=== PATIENT | female | born 1995 | race Caucasian/White ===

== ENCOUNTER 2020-07-14 10:26 | Inpatient (IN) | payer OTHER ==
[2020-07-14] MEDS ORDERED: RINGERS SOLUTION,LACTATED 1,000 ML IV PRN (10:45)
[2020-07-14] MEDS ORDERED: RINGERS SOLUTION,LACTATED 1,000 ML IV ONE (10:45)
[2020-07-14] MEDS ORDERED: MISOPROSTOL 0.2 MG TABLET ONE (11:07)
[2020-07-14] MEDS ORDERED: OXYTOCIN 10 UNIT/ML VIAL ONE (11:07)
[2020-07-14] MEDS ORDERED: OXYTOCIN/0.9 % SODIUM CHLORIDE 30 UNIT/500 ML RTUINJ ONE (11:08)
[2020-07-14] MEDS ORDERED: LIDOCAINE 1% INJ-PF (10 MG/ML) 30 ML SDV ONE (11:08)
[2020-07-14 11:17] LABS: APPEARANCE,URINE CLOUDY; BILIRUBIN,URINE NEGATIVE (NEGATIVE); COLOR,URINE YELLOW; GLUCOSE, URINE NEGATIVE (NEGATIVE); KETONES,URINE 20 mg/dL (NEGATIVE); LEUKOCYTE ESTERASE,URINE LARGE (NEGATIVE); NITRITE,URINE NEGATIVE (NEGATIVE); PROTEIN,URINE 30 mg/dL (NEGATIVE); URINE SPECIFIC GRAVITY 1.004; UROBILINOGEN,URINE NEGATIVE mg/dL (<2.0)
[2020-07-14 11:26] LABS: ABSOLUTE BASOPHILS # (AUTO) 0.1 10^3/uL (0.0-0.2); ABSOLUTE LYMPHOCYTES (AUTO) 2.7 10^3/uL (0.5-4.7); ABSOLUTE MONOCYTES (AUTO) 0.8 10^3/uL (0.1-1.4); ABSOLUTE NEUT (AUTO) 14.4 10^3/uL (1.7-8.2); BASOPHILS % (AUTO) 0.5 % (0-2); EOSINOPHILS % (AUTO) 0.3 % (0-6); HEMOGLOBIN 13.8 g/dL (12.0-15.5); MEAN CORPUSCULAR HEMOGLOBIN 30.1 pg (27.0-33.4); MEAN CORPUSCULAR HGB CONC 36.2 g/dL (32.0-36.0); MEAN CORPUSCULAR VOLUME 83 fl (80-97); MONOCYTES % (AUTO) 4.2 % (3-13); PLATELET COUNT 225 10^3/uL (150-450); RED BLOOD COUNT 4.58 10^6/uL (3.72-5.28); RED CELL DISTRIBUTION WIDTH 13.4 % (11.5-14.0); TOTAL CELLS COUNTED % (AUTO) 100 %
[2020-07-14 11:35] LABS: URINE AMPHETAMINES SCREEN NEGATIVE; URINE BARBITURATES SCREEN NEGATIVE; URINE BENZODIAZEPINES SCREEN NEGATIVE; URINE COCAINE SCREEN NEGATIVE; URINE MARIJUANA (THC) SCREEN NEGATIVE; URINE METHADONE SCREEN NEGATIVE; URINE PHENCYCLIDINE SCREEN NEGATIVE
--- NOTE | 2020-07-14 14:46 | Admission Physical ---
Datetime Report Generated by CPN: 07/14/2020 14:45 CURRENT ADMISSION Chief Complaint: Uterine Contractions Indication for Induction: Not Applicable Admit Impression : Term, Intrauterine Admit Plan: Admit to Unit; Initiate Labor Protocol ALLERGIES Medication Allergies: Yes Medication Allergies: oxycodone (07/14/2020) Latex: No Latex Allergies Food Allergies: n/a Environmental Allergies: seasonal OBSTETRICAL HISTORY EDC: 07/19/2020 00:00 : 2 Para: 1 Term: 1 : 0 SAB: 0 IAB: 0 Ectopic: 0 Livin Cesareans: 0 VBACs: 0 Multiple Births: 0 Gestational Diabetes: No Rh Sensitization: No Incompetent Cervix: No DREW: No Infertility: No ART Treatment: No Uterine Anomaly: No IUGR: No Hx Previous C/S: No Macrosomia: No Hx Loss/Stillborn: No PIH: No Hx : No Placenta Previa/Abruption: No Depression/PP Depression: Yes PTL/PROM: No Post Hemorrhage: No Current Procedures: Ultrasound Obstetrical History Comments: G1- G2- current SEE RECORDS Alcohol: No Marijuana : No Cocaine: No Other Illicit Drugs: No Cigarettes: Former Smoker. 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 Surgery: No Heart Disease: No Hosp/Surgery: Yes Autoimmune Disorder: No Anesthetic Complications: No Kidney Disease: No Abnormal Pap Smear: No Neuro/Epilepsy: No Psychiatric Disorders: Yes Other Medical Diseases: No Hepatitis/Liver Disease: No Significant Family History: No Varicosities/Phlebitis: No Trauma/Violence : No Thyroid Dysfunction: No Medical History Comments: migraines, scoliosis, T_A, nasal surgery, left foot surgery, anxiety, bunionectomy (Annotations: Data stored by [facility] on behalf of user) INFECTIOUS HISTORY Gonorrhea: No Genital Herpes: No Chlamydia: No Tuberculosis: No Syphilis: No Hepatitis: No HIV/AIDS Exposure: No Rash or Viral Illness: No HPV: No PHYSICAL EXAM General: Normal HEENT: Normal Neurologic: Normal Thyroid: Normal Heart: Normal Lungs: Normal Breast: Deferred Back: Normal Abdomen: Normal Genitourinary Exam: Normal Extremities: Normal DTRs: Normal Pelvic Type: Adequate FETUS A EGA: 39.2 PLANS FOR LABOR AND DELIVERY Labor and Delivery: None Pain Management: Natural Feeding Preference: Breast Benefit of Breast Feed Discussed: Yes Circumcision: N/A INFORMED CONSENT Signature: with User ID: [email or web address]
[2020-07-14] MEDS ORDERED: DIPH/PERTUSS(ACELL)/TETANUS VAC/PF 0.5 ML SYR (>=10YO) IM PRN (15:25)
[2020-07-14] MEDS ORDERED: OXYTOCIN/0.9 % SODIUM CHLORIDE 30 UNIT/500 ML RTUINJ IV PRN (15:25)
[2020-07-14] MEDS ORDERED: DIBUCAINE 1% OINTMENT 28 GM TP PRN (15:25)
[2020-07-14] MEDS ORDERED: PROMETHAZINE HCL 25 MG SUPP.RECT PR PRN (15:25)
[2020-07-14] MEDS ORDERED: BENZOCAINE/MENTHOL AEROSOL SPRAY 56 ML TOP PRN (15:25)
[2020-07-14] MEDS ORDERED: MEASLES,MUMPS&RUBELLA VACC/PF 0.5 ML VIAL SUBCUT PRN (15:25)
[2020-07-14] MEDS ORDERED: ACETAMINOPHEN 650 MG SUPP.RECT PR PRN (15:25)
[2020-07-14] MEDS ORDERED: MAGNESIUM HYDROXIDE SUSP 30 ML UDCUP PO PRN (15:25)
[2020-07-14] MEDS ORDERED: PROMETHAZINE HCL 25 MG TABLET PO PRN (15:25)
[2020-07-14] MEDS ORDERED: GLYCERIN/WITCH HAZEL LEAF 1 EACH MED..WIPE TP PRN (15:25)
[2020-07-14] MEDS ORDERED: ZOLPIDEM TARTRATE 5 MG TABLET PO PRN (15:25)
[2020-07-14] MEDS ORDERED: PSEUDOEPHEDRINE HCL 30 MG TABLET PO PRN (15:25)
[2020-07-14] MEDS ORDERED: ACETAMINOPHEN WITH CODEINE #3 TABLET PO PRN (15:25)
[2020-07-14] MEDS ORDERED: PROMETHAZINE HCL INJ 25 MG/1 ML VIAL IV PRN (15:25)
[2020-07-14] MEDS ORDERED: DIPHENHYDRAMINE HCL 25 MG CAPSULE PO PRN (15:25)
[2020-07-14] MEDS ORDERED: NA PHOS,M-B/NA PHOS,DI-BA (ADULT) 133 ML ENEMA PR PRN (15:25)
[2020-07-14] MEDS ORDERED: BENZOCAINE/MENTHOL AEROSOL SPRAY 56 ML ONE (15:40)
[2020-07-14] MEDS ORDERED: IBUPROFEN 800 MG TABLET ONE (15:40)
--- NOTE | 2020-07-14 18:27 | Birth Certificate Data ---
Cert Data Datetime Report Generated by CPN: 07/14/2020 18:27 CERTIFICATE DATA Delivery Provider: Chay Lobato MD (07/14/2020 10:30:Yue Dawkins RN) 47a. Care: Yes (07/14/2020 10:30:Yue Dawkins RN) 47b. Date of First Visit: 12/23/2019 00:00 (07/14/2020 10:30:Destiny King RN) 47c. Date of Last Visit: 07/13/2020 00:00 (07/14/2020 10:30:Destiny King RN) 47d. Number of Visits: 9 (07/14/2020 10:30:Destiny King RN) 48a. Number of Prev Live Births: 1 (07/14/2020 10:30:Destiny King RN) 48b. Now Livin (07/14/2020 10:30:Destiny King RN) 48c. Live Births Now : 0 (07/14/2020 10:30:QS system process) 48d. Date of Last Live : 04/27/2016 00:00 (07/14/2020 10:30:Destiny King RN) 48e. Losses: 0 (07/14/2020 10:30:Destiny King RN) RISK FACTORS IN THIS 49a. Diabetes: No (07/14/2020 10:30:Yue Dawkins RN) 49b. Hypertension: No (07/14/2020 10:30:Yue Dawkins RN) 49c. Previous Births: 0 (07/14/2020 10:30:Yue Dawkins RN) 49d. Stillborns: No (07/14/2020 10:30:Yue Dawkins RN) 49d. IUGR: No (07/14/2020 10:30:Yue Dawkins RN) 49e. Infertility Treatment: No (07/14/2020 10:30:Yue Dawkins RN) 49f. Previous Cesareans: 0 (07/14/2020 10:30:Destiny King RN) Mother's Height 50b. Height Inches: 65 (07/14/2020 11:01:QS system process) Mother's Weight 51a. Pre- Weight (lbs): 176 (07/14/2020 10:30:Destiny King RN) 51b. Weight at Delivery (lbs): 189 (07/14/2020 18:25:QS system process) 52. Dt Last Normal Menses Began: 10/12/2019 00:00 (07/14/2020 10:30:Destiny King RN) Infections Present/Treated 53a. Gonorrhea: No (07/14/2020 10:30:Yue Dawkins RN) Results this Hospital Visit : Negative (07/14/2020 10:30:Destiny King RN) 53b. Syphilis: No (07/14/2020 10:30:Yue Dawkins RN) 53c. Chlamydia: No (07/14/2020 10:30:Yue Dawkins RN) Results this Hospital Visit: Negative (07/14/2020 10:30:Destiny King RN) 53d. Hepatitis B: No (07/14/2020 10:30:Yue Dawkins RN) Results this Hospital Visit: Negative (07/14/2020 10:30:Destiny King RN) 53e. Hepatitis C: Negative (07/14/2020 10:30:Destiny King RN) 53h. Mother Tested for HBsAG: Yes (07/14/2020 10:30:Destiny King RN) 53i. Date Tested: 12/16/2019 00:00 (07/14/2020 10:30:Destiny King RN) 53j. Test Result: Negative (07/14/2020 10:30:Destiny King RN) Obstetric Procedures 54a, b, c. Obstetric Procedures: Ultrasound (07/14/2020 10:30:Yue Dawkins RN) Cigarette Smoking Cigarette Smoking: Former Smoker. [id number] (07/14/2020 10:30:Destiny King RN) Onset of Labor 56a. PROM >12 Hrs: 0.12 (07/14/2020 10:30:QS system process) 56b. Precipitous Labor <3 Hrs: 4 (07/14/2020 10:30:QS system process) 56c. Prolonged Labor > 20 Hrs: 4 (07/14/2020 10:30:QS system process) 57a. Induction of Labor: N/A (07/14/2020 10:30:Luis Lyle RN) 57c. Non-Vertex Presentation A: Vertex (07/14/2020 10:30:Destiny King RN) 57d. Steroids - Lung Mat: None (07/14/2020 10:30:Yue Dawkins RN) 57d. Steroids - Lung Mat: Not Applicable (07/14/2020 10:30:Yue Dawkins RN) 57g. Moderate/Heavy Meconium: Clear (07/14/2020 15:13:Yue Dawkins RN) 57h. Intolerance of Labor: N/A (07/14/2020 10:30:Luis Lyle RN) : N/A (07/14/2020 10:30:Luis Lyle RN) 57i. Epidural/Spinal Anesthesia: None (07/14/2020 10:30:Luis Lyle RN) Method of Delivery 58a. Forceps - Unsuccessful A: N/A (07/14/2020 10:30:Luis Lyle RN) 58b. Vacuum - Unsuccessful A: N/A (07/14/2020 10:30:Luis Lyle RN) 58c. Presentation at 58c. Presentation at - A : Vertex (07/14/2020 10:30:Destiny King RN) 58c. Presentation at - A : N/A (07/14/2020 10:30:Yue Dawkins RN) 58c. Presentation at - A : Cephalic (07/14/2020 10:30:Destiny King RN) Final Route and Method of Del 58d. Baby A Route/Delivery: Vaginal (07/14/2020 15:20:Luis Lyle RN) 58e. Trial of Labor Attempted: No (07/14/2020 10:30:Yue Dawkins RN) 58e. Trial of Labor Attempted A: N/A (07/14/2020 10:30:Yue Dawkins RN) 58e. Trial of Labor Attempted B: N/A (07/14/2020 10:30:Yue Dawkins RN) Maternal Morbidity 59b. 3rd or 4th Degree Lacs: None (07/14/2020 10:30:Luis Lyle RN) 59b. 3rd or 4th Degree Lacs: N/A (07/14/2020 10:30:Yue Dawkins RN) Birthweight Baby A: 3170 (07/14/2020 10:30:Destiny King RN) 60a. Pounds : 7 (07/14/2020 10:30:QS system process) 60b. Ounces: 0 (07/14/2020 10:30:QS system process) 61. GA at Delivery Baby A: 39.2 (07/14/2020 10:30:Yue Dawkins RN) : Full Term- 39- 40.6 Weeks (07/14/2020 10:30:QS system process) 62a. 5 Minute Baby A: 9 (07/14/2020 10:30:QS system process)
--- NOTE | 2020-07-14 18:27 | Delivery Summary ---
Del Sum A-C Datetime Report Generated by CPN: 07/14/2020 18:27 DELIVERY PERSONNEL DELIVERY PERSONNEL: [id number] Delivery Doctor:: Chay Lobato MD Labor and Delivery Nurse:: Yue Dawkins RNcake wringer Nurse:: Luis Lyle RN Nursery Nurse:: Destiny King RN Hedis Nurse/METER SUPERVISOR: Katie Stovall, SENIOR ENVIRONMENTAL SCIENTIST MATERNAL INFORMATION Delivery Anesthesia: None Medications After Delivery: Pitocin 30 Units in 500ml NS/D5W Delivery QBL: 150 Maternal Complications: None LABOR SUMMARY EDC: 07/19/2020 00:00 No. Babies in Womb: 1 Attempted: No Labor Anesthesia: None LABOR INFORMATION Reason for Induction: Not Applicable Onset of Labor: 07/14/2020 10:40 Complete Dilatation: 07/14/2020 15:13 Oxytocin: N/A Group B Beta Strep: Negative Antibiotics # of Doses: 0 Name of Antibiotic Given: N/A Steroids Given: None Reason Steroids Not Administered: Not Applicable MEMBRANES Membranes Rupture Method: Spontaneous Rupture of Membranes: 07/14/2020 15:13 Length of Rupture (hr): 0.12 Amniotic Fluid Color: Clear Amniotic Fluid Amount: Large Amniotic Fluid Odor: Normal STAGES OF LABOR Stage 1 hr: 4 Stage 1 min: 33 Stage 2 hr: 0 Stage 2 min: 7 Stage 3 hr: 0 Stage 3 min: 4 Total Time in Labor hr: 4 Total Time in Labor min: 44 VAGINAL DELIVERY Episiotomy: None Laceration #1: None Laceration Extension #1: N/A Laceration Repair: Not Applicable Sponge Count Correct: N/A Sharps Count Correct: N/A CSECTION DELIVERY Primary Indication: N/A Secondary Indication: N/A CSection Incidence: N/A Labor: N/A Elective: N/A CSection Incision: N/A BABY A INFORMATION Delivery Date/Time: 07/14/2020 15:20 Method of Delivery: Vaginal Nurse Controlled Delivery: No Born in Route : No : N/A Forceps: N/A Vacuum Extraction: N/A Shoulder Dystocia : No PRESENTATION/POSITION BABY A Presentation: Cephalic Cephalic Presentation: Vertex Vertex Position: Left Occipital Anterior Breech Presentation: N/A PLACENTA INFORMATION BABY A Placenta Delivery Time : 07/14/2020 15:24 Placenta Method of Delivery: Spontaneous Placenta Status: Delivered SCORES BABY A Heart Rate 1 min: >100 bpm Resp Effort 1 min: Good Cry Reflex Irritability 1 min: Cough or Sneeze or Pulls Away Muscle Tone 1 min: Active Motion Color 1 min: Body [place], Extremities Blue Resuscitation Effort 1 min: Tactile Stimulation SCORE 1 MIN: 9 Heart Rate 5 min: >100 bpm Resp Effort 5 min: Good Cry Reflex Irritability 5 min: Cough or Sneeze or Pulls Away Muscle Tone 5 min: Active Motion Color 5 min: Body [place], Extremities Blue Resuscitation Effort 5 min: Tactile Stimulation SCORE 5 MIN: 9 INFORMATION BABY A Gestational Age at Delivery: 39.2 Gestational Status: Full Term- 39- 40.6 Weeks Outcome : Liveborn Infant Condition : Stable Infant Sex: Female IDENTIFICATION BABY A Verification Date/Time: 07/14/2020 15:29 ID Band Number: [id number] Mother's Name Verified: Yes RN Verifying Infant: Chaya King RN ; A. Garibaldi, RN WEIGHT/LENGTH BABY A Infant Birthweight (gm): 3170 Weight (lb): 7 Weight (oz): 0 Length (in): 19.75 Infant Length (cm): 50.17 CORD INFORMATION BABY A No. Cord Vessels: 3 Nuchal Cord : Around Neck x1, Loose Cord Blood Taken: Yes-For Storage (Mom's Blood type +) Suction: None ASSESSMENT BABY A Infant Complications: None; Other Infant Complications- Other: terminal mec Physical Findings at Delivery: Within Normal Limits Skin to Skin: Yes Yarn Texture Machine Operator/ALS Called : No Infant Care By: Chaya King RN Transferred To: Remains with Mother BABY B INFORMATION : N/A SIGNATURES Signature: with User ID: [email or web address]
[2020-07-14] MEDS: DOCUSATE SODIUM 100 MG CAPSULE PO SCH (19:30)
[2020-07-14] MEDS: FERROUS SULFATE 325 MG TABLET PO SCH (19:30)
[2020-07-14] MEDS: IBUPROFEN 800 MG TABLET PO SCH (22:14)
[2020-07-14] MEDS: FAMOTIDINE 20 MG TABLET PO SCH (22:14)
[2020-07-15] MEDS: IBUPROFEN 800 MG TABLET PO SCH ×2 (05:12→13:50)
[2020-07-15 07:12] LABS: HEMATOCRIT 31.5 % (36.0-47.0); MEAN CORPUSCULAR HEMOGLOBIN 30.3 pg (27.0-33.4); MEAN CORPUSCULAR HGB CONC 36.5 g/dL (32.0-36.0); MEAN CORPUSCULAR VOLUME 83 fl (80-97); PLATELET COUNT 183 10^3/uL (150-450); RED CELL DISTRIBUTION WIDTH 13.7 % (11.5-14.0)
[2020-07-15 07:14] LABS: HEMOGLOBIN 11.5 g/dL (12.0-15.5)
[2020-07-15 07:37] VITALS: BP 116/67
[2020-07-15] MEDS: DOCUSATE SODIUM 100 MG CAPSULE PO SCH (09:46)
[2020-07-15] MEDS: FAMOTIDINE 20 MG TABLET PO SCH (09:46)
[2020-07-15] MEDS: FERROUS SULFATE 325 MG TABLET PO SCH (09:46)
[2020-07-15] MEDS ORDERED: SENNOSIDES/DOCUSATE 8.6-50 MG 1 EACH TABLET PO SCH (10:00)
[2020-07-15] MEDS ORDERED: PRENATAL VITAMIN W DHA CAPSULE PO SCH (10:00)
--- NOTE | 2020-07-15 12:27 | PDOC PROGRESS REPORT ---
Subjective-OB Progress Note for:: 07/15/20 Subjective: Pt doing well, no concerns. She reports light bleeding, reg diet and voiding w/o difficulty. She would like to go home today, will discharge her if baby is discharged today. Physical Exam (OB) Vital Signs: Temp Pulse Resp BP Pulse Ox 98.0 F 79 18 116/67 99 07/15/20 08:38 07/15/20 07:12 07/15/20 07:12 07/15/20 07:12 07/15/20 07:12 Intake & Output 07/14/20 07/15/20 07/16/20 06:59 06:59 06:59 Intake Total 200 Balance 200 Weight 86.183 kg - PIH/Pre-Eclampsia Clonus: Negative Headache: Absent Epigastric Pain: No Visual Changes: No - Maternal Morbidity 59. Maternal Morbidity (serious complications experinced by the mother associated with labor and delivery: None of the above - Lochia Lochia Amount: Scant < 10 ml Lochia Color: Rubra/Red - Abdomen Description: Soft Hernia Present: No Fundal Description: Firm Fundal Height: u/u - u/2 Objective-Diagnostic Laboratory: 07/15/20 07:01 07/14/20 07/15/20 10:57 07:01 WBC 15.0 H RBC 3.80 Hgb 11.5 L D Hct 31.5 L MCV 83 MCH 30.3 MCHC 36.5 H RDW 13.7 Plt Count 183 Blood Type B POSITIVE Antibody Screen NEGATIVE Assessment and Plan(PN) - Assessment and Plan (1) Active labor at term Is this a current diagnosis for this admission?: Yes (2) Vaginal delivery Is this a current diagnosis for this admission?: Yes - Time Spent with Patient Time with patient: Less than 15 minutes Medications reviewed and adjusted accordingly: Yes - Disposition Anticipated Discharge Disposition: Home, Self Care Anticipated Discharge Timeframe: within 24 hours
--- NOTE | 2020-07-15 18:06 | PDOC DISCHARGE SUMMARY ---
Impression - Admit/DC Date/PCP Admission Date/Primary Care Provider: 07/14/20 10:56 Discharge Date: 07/15/20 - Discharge Diagnosis (1) Active labor at term Is this a current diagnosis for this admission?: Yes (2) Vaginal delivery Is this a current diagnosis for this admission?: Yes - Additional Information Resuscitation Status: Full Code Discharge Diet: Regular Discharge Activity: Balance Activity w/Rest, Pelvic Rest Home Medications: Vit No.130/Iron/Folic [ Tablet] 1 each PO DAILY 07/14/20 HPI Gestational Age: 39.2 Reason(s) for Admission: Onset of Labor Procedures: NST Intrapartum Procedure(s): Spontaneous Vaginal Delivery Hospital Course 59. Maternal Morbidity (serious complications experinced by the mother associated with labor and delivery: None of the above Results Laboratory Results: WBC 15.0 10^3/uL (4.0-10.5) H 07/15/20 07:01 RBC 3.80 10^6/uL (3.72-5.28) 07/15/20 07:01 Hgb 11.5 g/dL (12.0-15.5) L D 07/15/20 07:01 Hct 31.5 % (36.0-47.0) L 07/15/20 07:01 MCV 83 fl (80-97) 07/15/20 07:01 MCH 30.3 pg (27.0-33.4) 07/15/20 07:01 MCHC 36.5 g/dL (32.0-36.0) H 07/15/20 07:01 RDW 13.7 % (11.5-14.0) 07/15/20 07:01 Plt Count 183 10^3/uL (150-450) 07/15/20 07:01 Lymph % (Auto) 15.0 % (13-45) 07/14/20 10:57 Schuyler % (Auto) 4.2 % (3-13) 07/14/20 10:57 Eos % (Auto) 0.3 % (0-6) 07/14/20 10:57 Baso % (Auto) 0.5 % (0-2) 07/14/20 10:57 Absolute Neuts (auto) 14.4 10^3/uL (1.7-8.2) H 07/14/20 10:57 Absolute Lymphs (auto) 2.7 10^3/uL (0.5-4.7) 07/14/20 10:57 Absolute Monos (auto) 0.8 10^3/uL (0.1-1.4) 07/14/20 10:57 Absolute Eos (auto) 0.0 10^3/uL (0.0-0.6) 07/14/20 10:57 Absolute Basos (auto) 0.1 10^3/uL (0.0-0.2) 07/14/20 10:57 Seg Neutrophils % 80.0 % (42-78) H 07/14/20 10:57 Urine Color YELLOW 07/14/20 10:35 Urine Appearance CLOUDY 07/14/20 10:35 Urine pH 6.0 (5.0-9.0) 07/14/20 10:35 Ur Specific [place] 1.004 07/14/20 10:35 Urine Protein 30 mg/dL (NEGATIVE) H 07/14/20 10:35 Urine Glucose (UA) NEGATIVE mg/dL (NEGATIVE) 07/14/20 10:35 Urine Ketones 20 mg/dL (NEGATIVE) H 07/14/20 10:35 Urine Blood LARGE (NEGATIVE) H 07/14/20 10:35 Urine Nitrite NEGATIVE (NEGATIVE) 07/14/20 10:35 Urine Bilirubin NEGATIVE (NEGATIVE) 07/14/20 10:35 Urine Urobilinogen NEGATIVE mg/dL (<2.0) 07/14/20 10:35 Ur Leukocyte Esterase LARGE (NEGATIVE) H 07/14/20 10:35 Urine WBC (Auto) >182 /HPF 07/14/20 10:35 Urine RBC (Auto) 5 /HPF 07/14/20 10:35 Urine Bacteria (Auto) TRACE /HPF 07/14/20 10:35 Urine WBC Clumps MANY /HPF 07/14/20 10:35 Squamous Epi Cells Auto 13 /HPF 07/14/20 10:35 U Non-Squamous Epis Auto 1 /HPF 07/14/20 10:35 Urine Mucus (Auto) RARE /LPF 07/14/20 10:35 Urine Ascorbic Acid NEGATIVE (NEGATIVE) 07/14/20 10:35 Urine Opiates Screen NEGATIVE 07/14/20 10:35 Urine Methadone Screen NEGATIVE 07/14/20 10:35 Ur Barbiturates Screen NEGATIVE 07/14/20 10:35 Ur Phencyclidine Scrn NEGATIVE 07/14/20 10:35 Ur Amphetamines Screen NEGATIVE 07/14/20 10:35 U Benzodiazepines Scrn NEGATIVE 07/14/20 10:35 Urine Cocaine Screen NEGATIVE 07/14/20 10:35 U Marijuana (THC) Screen NEGATIVE 07/14/20 10:35 Blood Type B POSITIVE 07/14/20 10:57 Antibody Screen NEGATIVE 07/14/20 10:57 Plan Plan of Treatment: f/u at [facility] 4 wks Time Spent: Less than 30 Minutes
[2020-07-16 11:44] LABS: RAPID PLASMA REAGIN REACTIVE 1:4 (NONREACTIVE)
== END 2020-07-15 18:50 | disposition home or self-care (01) | DRG 807 ==
LOC: LC 10:26 → LR 10:56 → 2S 18:20
PROVIDERS: ADMIT Obstetrics & Gynecology Gynecology; ATTEND Obstetrics & Gynecology Gynecology
PROC: 10E0XZZ Delivery of Products of Conception, External Approach (ICD-10-PCS; principal; 2020-07-14)
DX: O69.1XX0 Labor and delivery complicated by cord around neck, with compression, not applicable or unspecified (principal); Z37.0 Single live birth; O99.344 Other mental disorders complicating childbirth; O77.0 Labor and delivery complicated by meconium in amniotic fluid; Z3A.39 39 weeks gestation of pregnancy; Z87.891 Personal history of nicotine dependence; Z88.6 Allergy status to analgesic agent
CPT/HCPCS: 36415; 80307; 81001; 85025; 85027; 86592; 86850; 86900; 86901; J2590; J3490